=== PATIENT | female | born 2005 | race Caucasian/White ===

== ENCOUNTER 2024-04-30 00:23 | Emergency (ER) | payer OTHER, SELFPAY ==
[2024-04-30 00:34] VITALS: BP 138/88
[2024-04-30 01:00] VITALS: BMI 25.0
--- NOTE | 2024-04-30 01:02 | EDRN ---
Pt reports 4 days of cough, congestion. States she vapes, concerned she has 'popcorn lung'. Pt taking OTC medications which helped her bring up a lot of sputum, past day cough has been dry. Pt c/o L rib pain. Denies any fevers.
[2024-04-30 01:12] LABS: Glucose - Point of Care 445 mg/dl (70-99)
--- NOTE | 2024-04-30 01:22 | ED.GENMED ---
History of Present Illness
General
Chief Complaint: Cold/Flu/URI Symptoms
Source: patient
Exam Limitations: none
Time Seen by Provider: 04/30/24 01:15
Nursing documentation reviewed up to this point in time: agreed with
History of Present Illness
History of Present Illness:
18-year-old female presents emergency room complaining of cough, sore throat and difficulty breathing.
Past History
Past History
ED Past Medical History: IDDM
ED Past Surgical History: Other ([place] teeth)
Social History
Tobacco: Vaping
Alcohol: None
Drug: None
Personal: Single
Living: with family
Review of Systems
Review of Systems
Allergies reviewed?: Yes
All Other Systems: Not applicable
Constitutional: Reports no symptoms
EENT: Reports sore throat
Respiratory: Reports cough
Cardiac: Reports no symptoms
ABD/GI: Reports no symptoms
: Reports no symptoms
Musculoskeletal: Reports no symptoms
Skin: Reports no symptoms
Neurological: Reports no symptoms
Endocrine: Reports no symptoms
Hematologic/Lymphatic: Reports no symptoms
Psychiatric: Reports no symptoms
Phy Exam
Physical Exam
Physical Exam:
Physical Exam
General: no apparent distress, not acutely ill
Neck: supple. no meningeal signs. normal posterior pharynx
Heart: s1/s2 regular rate and rhythm, no murmur. equal radial
pulses.
HEENT: Pupils equal round reactive to light, EOMI
Lungs: no acute respiratory distress. Rhonchi bilaterally
Abdomen: normal bowel sounds. not tender. no CVAT
Neuro: alert and oriented. no focal neurological deficits cranial nerves II through XII intact
Skin: no rash
Psychiatric: well kept. interactive and cooperative
Extremities: no edema. no calf tenderness. negative homans. good distal pulses
Course
Orders/Labs/Results
Orders:
Orders
04/30/24 01:01
CR Chest - 2 Views Urgent
Comment:
Reason For Exam: cough, pain with breathing
04/30/24 01:06
COVID-19 Antigen Urgent
Source: Nasal Swab
Influenza A+B Rapid Molecular Urgent
VALENTINO Source: Nasal Swab
Specimen Description:
04/30/24 01:48
Bedside Glucose- Treatment ONCE
04/30/24 01:55
Ipratropium/Albuterol Sulfate [Duoneb] 3 ml INH R NOW STA
Abnormal Lab Results
04/30/24 04/30/24
01:11 02:03
POC Glucose 445 H mg/dl 396 H mg/dl
(70-99) (70-99)
Vital Signs
Initial and Last Documented VS:
Initial Vital Signs
Temp Pulse Resp BP Pulse Ox
98.8 F 120 22 138/88 96
04/30/24 00:34 04/30/24 00:34 04/30/24 00:34 04/30/24 00:34 04/30/24 00:34
Last Documented Vital Signs
Temp Pulse Resp BP Pulse Ox
98.8 F 102 20 128/84 97
04/30/24 00:34 04/30/24 01:40 04/30/24 01:40 04/30/24 01:40 04/30/24 02:03
MDM/Problems Addressed
Differential Diagnosis Includes:
pneumonia, bronchitis
MDM/Problems Addressed:
18-year-old female with bronchitis. Do not suspect PE or pneumonia. Stable for discharge. Do not suspect DKA. Blood sugar improving.
Chronic conditions affecting care: DM
*Radiology
Radiology exam reviewed: preliminary read by ED provider (Chest x-ray no acute findings)
*Pulse Oximetry
Patient hypoxic: no
*EKG
Interpreted by ED Provider?: NA
*Journeyman Plumber Interpretation
Rate: normal
Interpretation: normal
Heart Rate: 99
Rhythm: sinus
*Critical Care Note
Total Time (30-74mins, 75-104mins- exclusive of procedures): Not Applicable
Data Reviewed
Further Testing Considered But Not Given:
labs and ct scan not indicated
Patient Management
Social determinants of health affecting care: Living situation and Substance abuse (vaping)
Escalation/DeEscalation of care consider admission/obs:
admit not indicated
ED Attending Note
-
Portions of this chart may have been created with voice recognition software.� Occasional wrong word or��sound alike� substitutions may have occurred due to the inherent limitations of voice recognition software.
Discharge Plan
Departure
Patient Disposition: Home (Routine Discharge)
Date of Disposition: 04/30/24
Time of Disposition: 02:14
Patient with high blood pressure during this ER visit?: Yes
Condition: Good
Discharge Problem:
Acute bronchitis
Instructions: Acute Bronchitis, Adult (DC), BLOOD PRESSURE
Prescriptions:
New
albuterol sulfate 90 mcg/actuation HFA aerosol inhaler
2 puff inhalation 6XD PRN (Reason: shortness of breath or wheezing) Qty: 8.5 0RF
Interventions
Interventions:
*Risk Screen - Suicide Last Done: 04/30/24 00:34
*General Assessment Last Done: 04/30/24 01:00
*Neglect/Abuse Screening Last Done: 04/30/24 00:34
*ED COVID-19 Vaccine History Last Done: 04/30/24 01:00
ED- Pulmonary Assessment Last Done: 04/30/24 01:12
Discharge Date and Time
Print Language: ECUADOREAN
[2024-04-30 01:27] LABS: COVID-19 Antigen Negative (Negative)
[2024-04-30 01:40] VITALS: BP 128/84
[2024-04-30 02:05] LABS: Glucose - Point of Care 396 mg/dl (70-99)
[2024-04-30] MEDS: DUONEB 3 ML INH (02:12)
[2024-04-30 02:19] VITALS: BP 123/76
== END 2024-04-30 02:33 | disposition home or self-care (01) ==
LOC: EMR 00:23
PROVIDERS: EMERGENCY PHYSICIAN Emergency Medicine; FAMILY PHYSICIAN Pediatrics
DX: J20.9 Acute bronchitis, unspecified (principal); R05.9 Cough, unspecified; E11.9 Type 2 diabetes mellitus without complications; F17.290 Nicotine dependence, other tobacco product, uncomplicated
CPT/HCPCS: 99283; 94640; 71046; 82962; 87502; 87811

== ENCOUNTER 2024-09-29 17:15 | Emergency (ER) | payer OTHER, SELFPAY ==
[2024-09-29 17:50] VITALS: BP 132/66
--- NOTE | 2024-09-29 17:57 | ED.GENMED ---
ED Provider Triage
-
Patient seen by provider in Triage?: Seen in Triage
A medical screening examination has been initiated by a qualified medical provider. Based on the assessment performed at this time, it has been determined that an emergent medical condition may exist and the patient has been informed that further
medical evaluation and possible additional diagnostic testing may be needed.
HPI: 18-year-old insulin-dependent diabetic, hypothyroidism.
Patient has an insulin pump and a Dexcom. Her ketones were 80-160, fatigue, blood sugars were too high for the Dexcom to read all day. Has had polydipsia and polyuria. Feels nauseous but has not vomited. Denies fever.
GENERAL: Alert , in no apparent distress
EYE: No visual abnormalities.
NECK: Trachea midline
ENT: No visible abnormalities.
LUNGS: No acute respiratory distress
NEUROLOGICAL: Alert and oriented
SKIN: Skin intact. No visible changes.
MUSCULOSKELETAL: Moving extremities normally
PSYCH: Normal and appropriate interaction.
This is a medical evaluation conducted in person to initiate diagnostic evaluation and provide initial therapeutics. Please see further documentation by the treating clinician.
History of Present Illness
General
Chief Complaint: Blood Sugar Problem
Source: patient and other (Mother)
Exam Limitations: none
Time Seen by Provider: 09/29/24 19:57
Nursing documentation reviewed up to this point in time: agreed with
History of Present Illness
History of Present Illness:
18-year-old insulin-dependent diabetic, hypothyroidism.
Patient has an insulin pump and a Dexcom. Her ketones were 80-160, fatigue, blood sugars were too high for the Dexcom to read all day. Has had polydipsia and polyuria. Feels nauseous but has not vomited. Denies fever.
Past History
Past History
ED Past Medical History: IDDM and Psychiatric (Depression)
ED Past Surgical History: Other ([place] teeth)
Social History
Tobacco: Vaping
Alcohol: None
Drug: None
Personal: Single
Living: with family
Review of Systems
Review of Systems
Allergies reviewed?: Yes
All Other Systems: ROS reviewed and negative except as documented in HPI and ROS
Constitutional: Denies fever or fatigue
Respiratory: Denies trouble breathing
Cardiac: Denies chest pain
ABD/GI: Denies abdominal pain, nausea, vomiting, diarrhea or anorexia
: Denies dysuria or difficulty voiding
Musculoskeletal: Reports no symptoms
Skin: Reports no symptoms
Neurological: Reports no symptoms
Phy Exam
Physical Exam
Physical Exam:
GENERAL: No acute distress. A&Ox3.
CONSTITUTIONAL: Afebrile.
EYES: Clear, conjunctivae normal
ENMT: moist mucus membranes, Pharynx nl
RESPIRATORY: Regular respirations, nonlabored, lungs clear.
CARDIOVASCULAR: Regular rate and rhythm, no murmurs, no rubs.
GI: Soft, nontender
MUSCULOSKELETAL: Moves with ease. Well perfused.
SKIN: Warm, dry, pink
PSYCH: Normal mood and affect. Well kept, interactive and appropriate
NEUROLOGIC: Awake, alert and oriented. No focal neurological deficits
Course
Orders/Labs/Results
Orders:
Orders
09/29/24 18:07
Complete Blood Count/With Diff Urgent
Comprehensive Metabolic Panel Urgent
Hemoglobin A1c [Glycohemoglobin (HgbA1c)] Urgent
[place] Urgent
TSH Reflex To Free T4 Urgent
Abnormal Lab Results
09/29/24
18:07
RBC 4.07 L 10^6/uL
(4.20-5.40)
Hgb 11.3 L g/dL
(12.0-16.0)
Hct 34.3 L %
(37.0-47.0)
MCHC 32.9 L g/dL
(33.0-37.0)
Lymphocytes % 17.9 L %
(20.5-51.1)
Glucose 202 H mg/dl
(70-99)
Albumin 5.1 H g/dl
(3.5-5.0)
[place] 0.4 L mmol/L
(0.6-1.2)
09/29/24 18:07
09/29/24 18:07
Vital Signs
Initial and Last Documented VS:
Initial Vital Signs
Temp Pulse Resp BP Pulse Ox
98.3 F 101 16 132/66 99
09/29/24 17:50 09/29/24 17:50 09/29/24 17:50 09/29/24 17:50 09/29/24 17:50
Last Documented Vital Signs
Temp Pulse Resp BP Pulse Ox
98.3 F 88 18 130/85 99
09/29/24 17:50 09/29/24 20:19 09/29/24 20:19 09/29/24 20:19 09/29/24 20:19
MDM/Problems Addressed
MDM/Problems Addressed:
18-year-old insulin-dependent diabetic, hypothyroidism.
Patient has an insulin pump and a Dexcom. Her ketones were 80-160, fatigue, blood sugars were too high for the Dexcom to read all day. Has had polydipsia and polyuria. Feels nauseous but has not vomited. Denies fever.
CBC unremarkable, patient has a history of anemia
CMP with blood sugar of 202 otherwise unremarkable
[place] level ordered as out pt so done here, she will discuss results with Psychiatrist
Pt blood sugar reading 110 now. Mom and pt requesting to go home.
They will f/u with Water Pollution Specialist in 2 days (Wednesday)
*Critical Care Note
Total Time (30-74mins, 75-104mins- exclusive of procedures): Not Applicable
ED Attending Note
-
Portions of this chart may have been created with voice recognition software.� Occasional wrong word or��sound alike� substitutions may have occurred due to the inherent limitations of voice recognition software.
Discharge Plan
Departure
Patient Disposition: Home (Routine Discharge)
Date of Disposition: 09/29/24
Time of Disposition: 19:59
Patient with high blood pressure during this ER visit?: No
Condition: Good
Discharge Problem:
Acute hyperglycemia, Type 1 diabetes
Instructions: Diabetes Type 1, Adult (DC)
Prescriptions:
No Action
albuterol sulfate 90 mcg/actuation HFA aerosol inhaler
2 puff inhalation 6XD PRN (Reason: shortness of breath or wheezing) Qty: 8.5 0RF
lamotrigine [Lamictal] 200 mg Tablet
200 mg PO BID
levothyroxine 25 mcg Tablet
25 mcg PO DAILY
dextroamphetamine-amphetamine [Adderall] 15 mg Tablet
15 mg PO DAILY
Referrals:
your, Water Pollution Specialist [Other] - Follow up in 2-3 days
Activity Restrictions/Additional Instructions:
As we discussed, contact your chemical unit operator on Wednesday and inform of today's visit.
Your lithium level is minimally subtherapeutic. Discuss with your Psychiatrist
Interventions
Interventions:
*Risk Screen - Suicide Last Done: 09/29/24 17:50
*Neglect/Abuse Screening Last Done: 09/29/24 17:50
*Nursing Disposition Last Done: 09/29/24 20:27
ED- Neurological Assessment Last Done: 09/29/24 20:19
Discharge Date and Time
Discharge Date/Time: 09/29/24 20:27
Print Language: VIETNAMESE
[2024-09-29 18:28] LABS: % Basophils 0.7 % (0-2); % Eosinophils 0.7 % (0-6); % Immature Granulocytes 0.4 % (0-0.5); % Lymphocytes 17.9 % (20.5-51.1); % Neutrophils 72.3 % (42.2-75.2); Absolute Basophils 0.1 10^3/uL (0-0.2); Absolute Eosinophils 0.1 10^3/uL (0-0.7); Absolute Lymphocytes 1.3 10^3/uL (1.2-3.4); Absolute Monocytes 0.6 10^3/uL (0.1-0.6); Absolute Neutrophils 5.4 10^3/uL (1.4-6.5); Hematocrit 34.3 % (37.0-47.0); Hemoglobin 11.3 g/dL (12.0-16.0); Mean Corp Hgb Conc. 32.9 g/dL (33.0-37.0); Mean Corpuscular Hgb 27.8 pg (27.0-31.0); Mean Corpuscular Volume 84.3 fL (81.0-99.0); Mean Platelet Volume 8.9 fL (7.4-10.4); Nucleated Red Blood Cells % 0 %; Platelet Count 372 10^3/uL (130-400); Red Blood Cell Count 4.07 10^6/uL (4.20-5.40); Red Cell Dist. Width 12.9 % (11.5-14.5); White Blood Cell Count 7.5 10^3/uL (4.8-10.8)
[2024-09-29 18:45] LABS: ALT (SGPT) 21 U/L (0-35); AST (SGOT) 24 U/L (14-36); Albumin 5.1 g/dl (3.5-5.0); Alkaline Phosphatase 79 U/L (38-126); Blood Urea Nitrogen 8 mg/dl (7-17); Calcium 9.9 mg/dl (8.4-10.2); Carbon Dioxide 26 mmol/L (22-30); Chloride 100 mmol/L (98-107); Glucose 202 mg/dl (70-99); Potassium 4.1 mmol/L (3.5-5.1); Sodium 139 mmol/L (135-145); Total Bilirubin 0.4 mg/dl (0.2-1.3); Total Protein 8.1 g/dl (6.3-8.2); eGFR > 60.00
[2024-09-29 18:58] LABS: Lithium 0.4 mmol/L (0.6-1.2)
[2024-09-29 20:19] VITALS: BP 130/85
[2024-09-30 10:39] LABS: Glycohemoglobin (HgbA1c) 7.7 % (4.0-5.6)
== END 2024-09-29 20:27 | disposition home or self-care (01) ==
LOC: EMR 17:15
PROVIDERS: Registered Nurse; EMERGENCY PHYSICIAN Emergency Medicine; FAMILY PHYSICIAN Pediatrics
DX: E10.65 Type 1 diabetes mellitus with hyperglycemia (principal); F17.290 Nicotine dependence, other tobacco product, uncomplicated; E03.9 Hypothyroidism, unspecified
CPT/HCPCS: 99283; 80053; 80178; 83036; 84443; 85025

== ENCOUNTER 2025-02-20 18:39 | Emergency (ER) | payer OTHER, SELFPAY ==
[2025-02-20 18:42] VITALS: BP 163/91
--- NOTE | 2025-02-20 19:54 | ED.SKININJ ---
HPI-Injury
General
Chief Complaint: Skin Problem
Source: patient
Exam Limitations: none
Time Seen by Provider: 02/20/25 19:43
Nursing documentation reviewed up to this point in time: agreed with
History of Present Illness-Injury
Is this injury a work related problem?: No
Is pt an associate of [facility]/[place]?: No
Initial Injury comments:
Patient to ED for eval of suspected abscess to right lat thigh. She states she had her glucose sensor there and developed redness swellng and pain. She was placed on an antibiotic x 1 week but 'lump' is stilll present. She denies fever/chills.
Past History
Past History
ED Past Medical History: IDDM and Psychiatric (Depression)
ED Past Surgical History: Other ([place] teeth)
Social History
Tobacco: Vaping
Alcohol: None
Drug: None
Personal: Single
Living: with family
Review of Systems
Review of Systems
Allergies reviewed?: Yes
All Other Systems: ROS reviewed and negative except as documented in HPI and ROS
Constitutional: Reports no symptoms
EENT: Reports no symptoms
Respiratory: Reports no symptoms
Cardiac: Reports no symptoms
ABD/GI: Reports no symptoms
: Reports no symptoms
Skin: Reports other (skin abscess right lat thigh)
Neurological: Reports no symptoms
Psychiatric: Reports no symptoms
Skin Exam
Abscess
Right Lateral Thigh:
Description of abscess: firm
Surrounding skin:: inflammed at abscess site
Phy Exam
General Physical Exam
General Presentation: well appearing and no apparent distress
General age: appears stated age
General Skin: warm and dry
General Habitus: normal
General Mental: alert
Musculoskeletal Exam
Musculoskeletal Exam: full ROM and neuro vasc intact
Skin Exam
Skin Exam: normal color, warm/dry and no rash
Psychiatric Exam
Psychiatric Exam: normal mood/affect
Course
Orders/Labs/Results
Orders:
Orders
02/20/25 19:53
Wound Culture [Wound/Abscess/Other Culture] Urgent
VALENTINO Source: Abscess
Specimen Description:
Cephalexin Monohydrate [Keflex] 500 mg PO NOW STA
Vital Signs
Initial and Last Documented VS:
Initial Vital Signs
Temp Pulse Resp BP Pulse Ox
99.0 F 78 18 163/91 99
02/20/25 18:42 02/20/25 18:42 02/20/25 18:42 02/20/25 18:42 02/20/25 18:42
Last Documented Vital Signs
Temp Pulse Resp BP Pulse Ox
99.0 F 78 18 163/91 99
02/20/25 18:42 02/20/25 18:42 02/20/25 18:42 02/20/25 18:42 02/20/25 18:42
Procedures
Incision/Drainage/Joint Aspiration
Right Lateral Thigh:
Anethesia: 1% Lidocaine with Epi
Preparation: cleaned with Betadine
Type of procedure: incise and drain
Nature of site: abscess
Description of abscess: less than 3cm
Loculations broken up: Yes
How much fluid was obtained?: scant amount
Fluid description: cloudy
Treatment: left open for drainage and antibiotics started
*Critical Care Note
Total Time (30-74mins, 75-104mins- exclusive of procedures): Not Applicable
ED Attending Note
-
Portions of this chart may have been created with voice recognition software.� Occasional wrong word or��sound alike� substitutions may have occurred due to the inherent limitations of voice recognition software.
Discharge Plan
Departure
Prescriptions:
No Action
albuterol sulfate 90 mcg/actuation HFA aerosol inhaler
2 puff inhalation 6XD PRN (Reason: shortness of breath or wheezing) Qty: 8.5 0RF
lamotrigine [Lamictal] 200 mg Tablet
200 mg PO BID
levothyroxine 25 mcg Tablet
25 mcg PO DAILY
dextroamphetamine-amphetamine [Adderall] 15 mg Tablet
15 mg PO DAILY
Interventions
Interventions:
*Risk Screen - Suicide Last Done: 02/20/25 18:42
*General Assessment Last Done: 02/20/25 18:42
*Neglect/Abuse Screening Last Done: 02/20/25 18:42
*ED COVID-19 Vaccine History Last Done: 02/20/25 18:42
Discharge Date and Time
Print Language: BURUNDIAN
[2025-02-20] MEDS: KEFLEX 500 MG PO (20:00)
== END 2025-02-20 20:14 | disposition home or self-care (01) ==
LOC: EMR 18:39
PROVIDERS: EMERGENCY PHYSICIAN Student in an Organized Health Care Education/Training Program; FAMILY PHYSICIAN Pediatrics
DX: L02.415 Cutaneous abscess of right lower limb (principal); E11.9 Type 2 diabetes mellitus without complications; F17.290 Nicotine dependence, other tobacco product, uncomplicated; Z79.4 Long term (current) use of insulin
CPT/HCPCS: 10060; 99283; 87070; 87205